=== PATIENT | male | born 1995 ===

== ENCOUNTER 2017-07-20 02:14 | Observation (INO) | payer SELFPAY ==
[2017-07-20 02:31] VITALS: BP 130/79; PULSE 81; RESP 16; TEMP 98.4; O2SAT 98
--- NOTE | 2017-07-20 02:46 | ED PDOC ---
HPI: Psych/Substance Abuse Time Seen by Provider: 07/20/17 02:44 Chief Complaint (Nursing): Alcohol Ingestion Chief Complaint (Provider): etoh History Per: Patient, EMS Additional Complaint(s): Patient arrives via ambulance acutely intoxicated. Patient slipped and fell sustaining facial abrasions. He was found sitting on a porch by EMS. Unknown loss of consciousness. Abrasions to left knee also noted. Patient states his tetanus is up to date. Past Medical History Reviewed: Historical Data, Nursing Documentation, Vital Signs Vital Signs: Last Vital Signs Temp 98.4 F 07/20/17 02:27 Pulse 81 07/20/17 02:27 Resp 16 07/20/17 02:27 BP 130/79 07/20/17 02:27 Pulse Ox 98 07/20/17 02:27 - Medical History PMH: No Chronic Diseases - Surgical History Surgical History: No Surg Hx - Family History Family History: States: No Known Family Hx - Living Arrangements Living Arrangements: With Family - Social History Current smoker - smoking cessation education provided: No Alcohol: Social Drugs: Denies - Immunization History Hx Tetanus Toxoid Vaccination: Yes - Allergies Allergies/Adverse Reactions: Allergies Allergy/AdvReac Type Severity Reaction Status Date / Time No Known Allergies Allergy Verified 07/20/17 02:25 Review of Systems ROS Statement: Except As Marked, All Systems Reviewed And Found Negative Skin: Positive for: Other (abrasions to face and left knee) Neurological: Positive for: Other (unknown if patient had LOC) Psych: Positive for: Other (etoh) Physical Exam - Reviewed Nursing Documentation Reviewed: Yes Vital Signs Reviewed: Yes - Physical Exam Appears: Positive for: Well, Non-toxic, No Acute Distress Head Exam: Negative for: ATRAUMATIC (Abrasions noted to upper lip, no active bleeding) Skin: Positive for: Normal Color. Negative for: Rash Eye Exam: Positive for: Normal appearance, EOMI, PERRL ENT: Positive for: Normal ENT Inspection Cardiovascular/Chest: Positive for: Regular Rate, Rhythm Respiratory: Positive for: Normal Breath Sounds Extremity: Positive for: Other (Superficial abrasion left patellar region with full range of motion) Neurologic/Psych: Positive for: Alert, Other (Intoxicated, answers some questions appropriately) - ECG O2 Sat by Pulse Oximetry: 98 Pulse Ox Interpretation: Normal - Other Rad CT head X-Ray: Read By Radiologist X-Ray Interpretation: no acute finding Medical Decision Making Medical Decision Makin21 year old intoxicated male with facial and left knee abrasion Plan: BAL CT head Glucose POC: 96 ED OBSERVATION Date of observation admission: 07/20/17 Time of observation admission: 03:00 - Observation admission statement Patient is being placed in observation because:: ETOH - Goals of Observation Goals of observation are:: Monitor patient while acutely intoxicated, pending clinical sobriety - Progress Note Progress Note: 07/20/17 04:41 CT head: negative. BAL: 364 Patient's father arrived at bedside, states he will take patient home. Patient is stable for discharge with father. Disposition - Clinical Impression Clinical Impression: Alcohol intoxication, Facial abrasion, Knee abrasion - Patient ED Disposition Is Patient to be Admitted: No Counseled Patient/Family Regarding: Studies Performed, Diagnosis, Need For Followup - Disposition Disposition: Routine/Home Disposition Time: 04:42 Condition: STABLE
--- NOTE | 2017-07-20 04:37 | CT ---
EXAM: CT Head Without Intravenous Contrast CLINICAL HISTORY: 21 years old, male; Injury or trauma; Fall; Initial encounter; Concussion / head injury TECHNIQUE: Axial computed tomography images of the head/brain without intravenous contrast. All CT scans at this facility use one or more dose reduction techniques, viz.: automated exposure control; ma/kV adjustment per patient size (including targeted exams where dose is matched to indication; i.e. head); or iterative reconstruction technique. Coronal and sagittal reformatted images were created and reviewed. COMPARISON: No relevant prior studies available. FINDINGS: Limitations: Motion artifact - mild. Brain: No definite intracranial hemorrhage. No mass. No definite edema. Ventricles: No hydrocephalus. Bones/joints: No acute fracture. Soft tissues: Unremarkable. Sinuses: No acute sinusitis. Mastoid air cells: No mastoid effusion. Orbits: Unremarkable as visualized. IMPRESSION: 1. No definite intracranial hemorrhage.
== END 2017-07-20 04:57 | disposition home or self-care (01) ==
LOC: H.ER 02:14 → H.EROBSV 02:59
PROVIDERS: ADMIT Emergency Medicine; ATTEND Emergency Medicine
DX: F10.129 Alcohol abuse with intoxication, unspecified (principal); S80.212A Abrasion, left knee, initial encounter; S00.81XA Abrasion of other part of head, initial encounter; Y90.8 Blood alcohol level of 240 mg/100 ml or more; W01.0XXA Fall on same level from slipping, tripping and stumbling without subsequent striking against object, initial encounter; Y92.89 Other specified places as the place of occurrence of the external cause
CPT/HCPCS: 70450; 99285; G0378; G0480